=== PATIENT | male | born 1960 | race Caucasian/White ===

== ENCOUNTER → 2024-10-22 09:11 | Outpatient (REF) | payer MEDICARE, BC, SELFPAY | LOC: HWRAD 09:11 | PROVIDERS: ATTENDING PHYSICIAN Specialist; FAMILY PHYSICIAN Family Medicine | DX: N40.1 Benign prostatic hyperplasia with lower urinary tract symptoms (principal); R97.20 Elevated prostate specific antigen [PSA] | CPT/HCPCS: 76770 ==